=== PATIENT | male | born 1940 | race Caucasian/White ===

== ENCOUNTER 2020-08-17 11:43 | Inpatient (IN) | payer MEDICARE, BC ==
--- NOTE | 2020-08-17 12:25 | RAD ---
RADIOGRAPH CHEST 1 VIEW: DATE: 08/17/2020 HISTORY: 80-year-old male with dyspnea FINDINGS: There are no airspace densities, pulmonary edema, pneumothorax, or cardiomegaly. The lateral costophr enic angles are sharp. IMPRESSION: No acute cardiopulmonary findings.
[2020-08-17 13:04] LABS: #Lymphocytes 0.5 thou/uL (1.20-3.40); #Monocytes 0.4 thou/uL (0.11-0.59); #Neutrophils 4.6 thou/uL (1.40-6.50); %Basophils 0.4 % (0.0-1.0); %Eosinophils 0.4 % (0.0-10.0); %Lymphocytes 8.6 % (21.0-51.0); %Monocytes 7.5 % (0.0-10.0); %Neutrophils 83.1 % (42.0-75.0); Hemoglobin 11.6 g/dL (14.0-18.0); Mean Corpuscular HGB CONC 34.9 g/dL (32.0-36.0); Mean Corpuscular Hemoglobin 40.1 pg (27.0-31.0); RBC Distribution Width 13.6 % (11.5-14.5); Red Blood Cell (RBC) Count 2.89 mill/uL (4.70-6.10); White Blood Cell (WBC) Count 5.6 thou/uL (4.8-10.8)
[2020-08-17 13:08] LABS: ALT (SGPT) 59 U/L (8-55); AST (SGOT) 168 U/L (5-34); Alkaline Phosphatase 164 U/L (40-110); Anion Gap 21 mmol/L (10-20); BUN (Urea Nitrogen) 10 mg/dL (8.4-25.7); Bilirubin, Total 1.6 mg/dL (0.2-1.2); Calc. Creatinine Clearance 0 mL/min (70-130); Calcium 8.3 mg/dL (7.8-10.44); Carbon Dioxide 22 mmol/L (23-31); Chloride 99 mmol/L (98-107); Globulin 4.4 g/dL (2.4-3.5); Glucose 121 mg/dL (83-110); Magnesium 1.6 mg/dL (1.6-2.6); Potassium 3.3 mmol/L (3.5-5.1); Protein, Total 7.4 g/dL (5.8-8.1); Sodium 139 mmol/L (136-145)
[2020-08-17 13:25] LABS: MDiff Complete? YES; Macrocytosis SLIGHT = 6-15 cells (100X) (0-5/hpf); Mean Platelet Volume 6.9 fL (7.4-10.4); Platelet Count 101 thou/uL (130-400); Platelet Morphology Comment Appears Decreased; Polychromasia SLIGHT = 2-3 cells (100X) (0-2/hpf); Target Cells SLIGHT = 2-5 cells (100X) (0-1/hpf)
[2020-08-17 14:34] LABS: Bacteria/HPF None Seen HPF (None Seen); Bilirubin 1+ (Negative); Blood, Urine 2+ (Negative); Clarity Clear (Clear); Glucose, Urine (Dipstick) Normal (Negative); Ketone, Urine 10 mg/dL (Negative); Leukocyte Negative Leu/uL (Negative); Nitrite Negative (Negative); Protein, Urine (Dipstick) 100 mg/dL (Neg-Trace); RBC/HPF Greater than 50 HPF (0-3); Specific Gravity, Urine 1.025 (1.002-1.036); Squamous Epithelial 0-3 HPF (0-3)
[2020-08-17] MEDS ORDERED: Potassium Chloride 20 MEQ TAB ONE (15:08)
[2020-08-17] MEDS ORDERED: Furosemide 40 MG/4 ML VIAL ONE (15:08)
[2020-08-17] MEDS ORDERED: Acetaminophen 325 MG TAB ONE (15:21)
[2020-08-17] MEDS ORDERED: Ondansetron PF 4 MG/2 ML Vial ONE (15:21)
[2020-08-17] MEDS ORDERED: Electrolyte Replacement Protocol 1 EACH FS SCH (16:15)
[2020-08-17] MEDS ORDERED: Potassium Chloride 20 MEQ TAB PO SCH (16:15)
[2020-08-17] MEDS: Acetaminophen 325 MG TAB PO PRN (17:51)
[2020-08-17] MEDS: cefTRIAXone\\ROCEPHIN 1 GM in Sodium Chloride 0.9% 100 ML IVPB SCH (17:52)
[2020-08-17 19:49] LABS: Troponin I 0.031 ng/mL (< 0.028)
[2020-08-17] MEDS: Famotidine 20 MG TAB PO SCH (21:13)
[2020-08-17 22:11] LABS: Troponin I 0.046 ng/mL (< 0.028)
--- NOTE | 2020-08-17 22:43 | HP ---
CHIEF COMPLAINT: Generalized weakness, shortness of breath, lower extremity swelling. HISTORY OF PRESENT ILLNESS: The patient is an 80-year-old male who has a history of colon cancer back in 2012, status post colon resection and chemotherapy, who presents to the hospital with complaints of lower extremity swelling, worsening for the past week. The patient states that he lives alone. He gets a caregiver who comes in 3 to 4 times a week. The patient normally ambulates with a walker, however, for the past week, he has been noticing worsening lower extremity swelling which has not improved. He states that for the past couple of days, he is unable to get up and ambulate with his walker to the point that he has to call his caregiver on a daily basis. He denies any fevers or chills. He does have little bit of a nonproductive cough. Denies any sick contacts. The patient denies any chest tightness. He states that he gets a little short of breath, however, does not ambulate very much at baseline. He normally sleeps in a recliner and has been doing that a lot more than usual. The patient also states that he gets [employer] delivered to him and also his caregiver brings an extra of [employer] D[employer] if he does not like the food at [employer]. The patient states that he has not really seen a primary care doctor and does not have a primary care doctor since his surgery in 2012. He only is treated for glaucoma that he has been using eyedrops. He denies any diarrhea. He states that he takes no medications and had a fall about 2 or 3 weeks ago, but he did not hit his head, he fell on his knees. PAST MEDICAL HISTORY: Per the notes, rectal cancer requiring surgery in the past, hypertension, glaucoma, anemia of chronic disease, seasonal allergies, falls at home, and chronic loose stools. PAST SURGICAL HISTORY: He has a history of rectal cancer surgery, tonsillectomy, bilateral cataract surgery. SOCIAL HISTORY: He lives at home alone with a caregiver who comes in 3 times a week. He is a former smoker, quit 27 years ago. Occasional alcohol use. Denies any drug use. FAMILY HISTORY: He states that they are all diseased. MEDICATIONS: He takes none. REVIEW OF SYSTEMS: All negative except the ones mentioned above in the HPI. PHYSICAL EXAMINATION: VITAL SIGNS: Temperature of 98.9, respiratory rate 18, pulse 105, blood pressure 166/82, oxygen saturation 96% on room air. GENERAL: He is awake, oriented x3. Does not appear in any respiratory distress. CV: Mild sinus tachycardia noted. No arrhythmia noted. No murmurs noted. ABDOMEN: Bowel sounds are present x2. Soft, nontender. No pain upon palpation. EXTREMITIES: He has significant lower extremity pitting edema all the way up to below his knees. SKIN: On his left 2nd toe, which appears significant erythema. Pedal pulses are nonpalpable. NEUROVASCULAR: He is able to move bilateral lower extremities, bilateral upper extremities. No focal deficits noted. HEENT: Pupils are equal and reactive to light. His conjunctivae appear pretty swollen, especially on the left lower lid compared to the right. LABORATORY RESULTS: Sodium of 139, potassium of 3.3, BUN of 10, creatinine of 0.74, glucose of 121. Bilirubin of 1.6, AST of 168, ALT of 59, alkaline phosphatase of 164. His CK is 294. His troponin x1 is negative. Hematology; WBCs of 5.6, hemoglobin of 11.6, hematocrit of 33.3, platelets of 101. His urine has 1+ bilirubin, leukocyte esterase is negative, wbcs of 4 to 6. He did have a BNP, which was mildly elevated, it was 108. Chest x-ray does not show any significant vascular congestion. ASSESSMENT AND PLAN: The patient is an 80-year-old male who presents to the hospital with significant lower extremity pitting edema. 1. Bilateral lower edema, unclear etiology. His BNP is not significantly elevated. The patient was given Lasix in the ER. I will go ahead and get an echocardiogram. We will trend his troponins. I did not see any significant JVD either. The patient clinically actually appears dehydrated. We will continue to monitor. 2. Left great toe erythema, possible cellulitis. The patient does not have a white count, however, he has significant erythema noted on his left 2nd toe. We will start him on some prophylactic ceftriaxone for now, possibly change it to Keflex. 3. Significant deconditioning. The patient will require PT, OT, and possible alf facility. 4. Elevated LFTs. We will get a right upper quadrant ultrasound. 5. Deep venous thrombosis prophylaxis. We will put the patient on subcu Lovenox. 6. We will consult Palliative Care since patient does not have an advance directive and he has a stepson who lives in [facility]. This patient will definitely require placement to a nursing care facility. Job ID: [id number]
[2020-08-18 04:49] LABS: #Lymphocytes 0.7 thou/uL (1.20-3.40); #Monocytes 0.5 thou/uL (0.11-0.59); #Neutrophils 3.5 thou/uL (1.40-6.50); %Basophils 0.8 % (0.0-1.0); %Eosinophils 0.2 % (0.0-10.0); %Lymphocytes 15.6 % (21.0-51.0); %Monocytes 9.8 % (0.0-10.0); %Neutrophils 73.8 % (42.0-75.0); Hemoglobin 9.8 g/dL (14.0-18.0); Mean Corpuscular HGB CONC 33.7 g/dL (32.0-36.0); Mean Corpuscular Hemoglobin 38.3 pg (27.0-31.0); Mean Platelet Volume 7.4 fL (7.4-10.4); Platelet Count 81 thou/uL (130-400); RBC Distribution Width 13.8 % (11.5-14.5); Red Blood Cell (RBC) Count 2.56 mill/uL (4.70-6.10); White Blood Cell (WBC) Count 4.8 thou/uL (4.8-10.8)
[2020-08-18 04:58] LABS: SARS-CoV-2 PCR by NAA Not Detected (NotDetected)
[2020-08-18 05:05] LABS: Anion Gap 14 mmol/L (10-20); BUN (Urea Nitrogen) 14 mg/dL (8.4-25.7); Calc. Creatinine Clearance 77 mL/min (70-130); Carbon Dioxide 30 mmol/L (23-31); Chloride 98 mmol/L (98-107); Glucose 105 mg/dL (83-110); Potassium 4.1 mmol/L (3.5-5.1); Sodium 138 mmol/L (136-145)
[2020-08-18] MEDS ORDERED: Magnesium 2 GM/50 ML 2 GM in Premix Bag 1 BAG IVPB SCH (06:30)
--- NOTE | 2020-08-18 07:53 | ULT ---
Right upper quadrant ultrasound: 08/18/2020 COMPARISON: None HISTORY: Elevated liver function tests TECHNIQUE: Multiplanar grayscale sonographic imaging of the right upper quadrant provided. FINDINGS: The pancreas is partially obscured by bowel gas. Visualized pancreas unremarkable. The hepa tic parenchyma is heterogeneous and echogenic, limiting assessment for focal liver lesion and biliary dilatation. The common bile duct measures 6 mm, upper limits of normal. The gallbladder wall appears thickened and hypoechoic in the region of the fundus. However, this coul d represent the gallbladder wall blending with focal fatty sparing of the hepatic parenchyma. The gallbladder appears otherwise unremarkable, with no discrete stones or sludge. The fretted instrument maker hand report s a negative Del Cid's sign. The right kidney measures 9.7 cm in craniocaudal dimension. There is a probable cyst emanating from t he lower pole of the right kidney measuring 1.5 cm. IMPRESSION: Findings suggesting hepatic steatosis. No evidence for cholelithiasis or cholecystitis. P alejandra see above discussion.
[2020-08-18] MEDS: Cyanocobalamin (Vitamin B-12) 1,000 MCG TAB PO SCH (08:53)
[2020-08-18] MEDS: Folic Acid 1 MG TAB PO SCH (08:53)
[2020-08-18] MEDS: Famotidine 20 MG TAB PO SCH ×2 (08:53→21:13)
[2020-08-18] MEDS: Enoxaparin Sodium 40 MG/0.4 ML SYRINGE SC SCH (08:55)
[2020-08-18] MEDS: Acetaminophen 325 MG TAB PO PRN (08:56)
[2020-08-18] MEDS ORDERED: Furosemide 40 MG/4 ML VIAL SLOW IVP SCH ×2 (09:00→10:00)
[2020-08-18] MEDS ORDERED: Ondansetron PF 4 MG/2 ML Vial IVP PRN (09:46)
[2020-08-18] MEDS ORDERED: Gabapentin 300 MG CAP PO SCH ×2 (13:37→14:15)
--- NOTE | 2020-08-18 14:22 | RAD ---
LEFT ANKLE 3 VIEWS: HISTORY: Ankle pain. COMPARISON: None. FINDINGS: There is extensive soft tissue swelling around the ankle. Mild to moderate vascular calcifications. No acute displaced fracture or malalignment. There are degenerative changes on the medial ankle mortise. Mild demineralization of the mid foot. IMPRESSION: 1. Extensive soft tissue swelling around the ankle. This can be seen with venous insufficiency, juvenal lulitis, or lymphedema. 2. Moderate to advised medial ankle mortise degeneration. 3. Likely osteochondral defect posteromedial talar dome. POS: OFF
--- NOTE | 2020-08-18 15:50 | PDOC.HOSPP ---
- Subjective Encounter Date: 08/18/20 Encounter Time: 10:45 Subjective: pt up in bed no complains - Objective Vital Signs & Weight: Vital Signs (12 hours) Temp Pulse Pulse Resp BP BP Pulse Ox 08/18/20 11:00 98.7 F 81 15 131/68 100 08/18/20 10:30 92 130/86 08/18/20 08:40 98.4 F 87 16 123/67 95 08/18/20 03:50 98.7 F 98 16 119/75 96 Weight Admit Weight 167 lb 9.6 oz Weight 167 lb 9.6 oz I&O: 08/17/20 08/18/20 08/19/20 06:59 06:59 06:59 Intake Total 470 Balance 470 Result Diagrams: 08/20/20 04:15 08/20/20 03:30 Hospitalist ROS - Review of Systems Respiratory: denies: cough, dry, shortness of breath, hemoptysis, SOB with excertion, pleuritic pain, sputum, wheezing, other Cardiovascular: denies: chest pain, palpitations, orthopnea, paroxysmal noc. dyspnea, edema, light headedness, other Gastrointestinal: denies: nausea, vomiting, abdominal pain, diarrhea, constipation, melena, hematochezia, other - Medication Medications: Active Medications Generic Name Dose Route Start Last Admin Trade Name Freq PRN Reason Stop Dose Admin Acetaminophen 650 mg 08/17/20 15:26 08/18/20 08:56 Acetaminophen 325 Mg Tab PO 650 mg Q8H PRN Administration Headache/Fever/Mild Pain (1-3) Cyanocobalamin 1,000 mcg 08/18/20 09:00 08/18/20 08:53 Cyanocobalamin (Vitamin B-12) 1,000 Mcg Tab PO 1,000 mcg DAILY JEANETTE Administration Enoxaparin Sodium 40 mg 08/18/20 09:00 08/18/20 08:55 Enoxaparin Sodium 40 Mg/0.4 Ml Syringe SC Not Given 0900 JEANETTE Famotidine 20 mg 08/17/20 21:00 08/18/20 08:53 Famotidine 20 Mg Tab PO 20 mg BID JEANETTE Administration Folic Acid 1 mg 08/18/20 09:00 08/18/20 08:53 Folic Acid 1 Mg Tab PO 1 mg DAILY JEANETTE Administration Gabapentin 300 mg 08/18/20 14:15 08/18/20 15:27 Gabapentin 300 Mg Cap PO 08/18/20 16:00 300 mg NOW JEANETTE Administration Ceftriaxone Sodium 1 gm/ 100 mls @ 200 mls/hr 08/17/20 17:00 08/17/20 17:52 Sodium Chloride IVPB 100 mls Q24HR JEANETTE Administration Ondansetron HCl 4 mg 08/18/20 09:46 08/18/20 11:03 Ondansetron Pf 4 Mg/2 Ml Vial IVP 4 mg Q6H PRN Administration Nausea/Vomiting Sodium Chloride 10 ml 08/18/20 09:00 08/18/20 08:56 Flush - Normal Saline 10 Ml Syringe IVF 10 ml Q12HR JEANETTE Administration Hospitalist Exam Vitals: Vital Signs (12 hours) Temp Pulse Pulse Resp BP BP Pulse Ox 08/18/20 11:00 98.7 F 81 15 131/68 100 08/18/20 10:30 92 130/86 08/18/20 08:40 98.4 F 87 16 123/67 95 08/18/20 03:50 98.7 F 98 16 119/75 96 Weight Admit Weight 167 lb 9.6 oz Weight 167 lb 9.6 oz Neck: supple Heart: no murmur, no gallops Respiratory: no wheezes, no rales, no ronchi Gastrointestinal: soft, non-tender, non-distended, normal bowel sounds Extremities: 2+ LE edema Hosp A/P (1) Gout Code(s): M10.9 - GOUT, UNSPECIFIED Status: Acute (2) Alcohol abuse Code(s): F10.10 - ALCOHOL ABUSE, UNCOMPLICATED Status: Acute (3) Abnormal LFTs Code(s): R79.89 - OTHER SPECIFIED ABNORMAL FINDINGS OF BLOOD CHEMISTRY Status: Acute (4) Physical deconditioning Code(s): R53.81 - OTHER MALAISE Status: Acute - Plan will get left ankle xray. will check Uric acid. PT to evaluate pt. will see if we can send him to rehab. echo done pending.
[2020-08-18] MEDS: cefTRIAXone\\ROCEPHIN 1 GM in Sodium Chloride 0.9% 100 ML IVPB SCH (17:12)
[2020-08-18] MEDS ORDERED: FLU VACC QS2020-21(65YR UP)/PF 240 MCG/0.7 ML SYRINGE IM ONE (18:15)
[2020-08-18] MEDS: Gabapentin 300 MG CAP PO SCH (21:12)
[2020-08-19] MEDS ORDERED: Ketorolac Tromethamine 30 MG/ML VIAL IVP SCH (07:45)
[2020-08-19] MEDS: Gabapentin 300 MG CAP PO SCH ×2 (07:52→21:48)
[2020-08-19] MEDS: Famotidine 20 MG TAB PO SCH ×2 (07:52→21:47)
[2020-08-19] MEDS: Cyanocobalamin (Vitamin B-12) 1,000 MCG TAB PO SCH (07:52)
[2020-08-19] MEDS: Folic Acid 1 MG TAB PO SCH (07:52)
[2020-08-19] MEDS: Enoxaparin Sodium 40 MG/0.4 ML SYRINGE SC SCH (07:53)
[2020-08-19] MEDS ORDERED: Colchicine 0.6 MG TAB PO SCH (09:15)
[2020-08-19 09:31] LABS: #Eosinphils 0.1 thou/uL (0.0-0.7); #Lymphocytes 0.7 thou/uL (1.20-3.40); #Monocytes 0.4 thou/uL (0.11-0.59); #Neutrophils 2.5 thou/uL (1.40-6.50); %Basophils 0.1 % (0.0-1.0); %Eosinophils 2.4 % (0.0-10.0); %Lymphocytes 18.5 % (21.0-51.0); %Monocytes 9.6 % (0.0-10.0); %Neutrophils 69.3 % (42.0-75.0); Hemoglobin 10.3 g/dL (14.0-18.0); Mean Corpuscular HGB CONC 33.5 g/dL (32.0-36.0); Mean Corpuscular Hemoglobin 38.4 pg (27.0-31.0); Mean Platelet Volume 7.6 fL (7.4-10.4); Platelet Count 83 thou/uL (130-400); RBC Distribution Width 13.6 % (11.5-14.5); Red Blood Cell (RBC) Count 2.67 mill/uL (4.70-6.10); White Blood Cell (WBC) Count 3.6 thou/uL (4.8-10.8)
[2020-08-19 10:10] LABS: MDiff Complete? YES; Macrocytosis MODERATE=16-30 cells (100X) (0-5/hpf); Platelet Morphology Comment Appears Decreased; Polychromasia SLIGHT = 2-3 cells (100X) (0-2/hpf)
[2020-08-19] MEDS ORDERED: Iopamidol 370 76% 100 ML VIAL ONE (12:10)
--- NOTE | 2020-08-19 14:47 | CT ---
CT ANGIO OF CHEST PERFORMED WITH INTRAVENOUS CONTRAST ENHANCEMENT WITH 3D RECONSTRUCTIONS: HISTORY: Tachycardia and hypoxia. COVID positive. There is some parenchymal scarring present in the lower lobes and right upper lobe. There are no mike und-glass infiltrative lung changes seen. No pleural effusions. Thoracic aorta is normal in caliber. There is good pulmonary artery opacification obtained and there is no CT evidence for pulmonary embolus. Coronary calcification is noted. Visualized liver parenchyma shows a suggestion of fatty change. The adrenal glands appear mildly hyp erplastic, particularly on the left. The contour of the liver is slightly nodular which could indica te some cirrhotic change. IMPRESSION: 1. Chronic-appearing lung change. No evidence of any ground-glass infiltrates. 2. No CT evidence for pulmonary embolus. POS: KARIS
--- NOTE | 2020-08-19 16:24 | PQF ---
CLINICAL DOCUMENTATION CLARIFICATION FORM: Dear Dr. Octavio Riley Date: 08/19/2020 1600, 08/20/2020 0930 Please exercise your independent, professional judgment in responding to the clarification form. Clinical indicators are provided on the bottom of this form for your review. Please check appropriate box(es): CONGESTIVE HEART FAILURE: A. ACUITY [ ] Acute [ x ] Acute on Chronic [ ] Chronic B. TYPE: [ ] Systolic / HFrEF [ x ] Diastolic / HFpEF [ ] Combined Systolic / Diastolic [ ] Other diagnosis [ ] Unable to determine In addition, please specify: Present on Admission (POA): [x ] Yes [ ] No [ ] Unable to determine For continuity of documentation, please document condition throughout progress notes and discharge summary. Thank You. To be completed by CDI/Coding staff for physician review: CLINICAL INDICATORS - SIGNS / SYMPTOMS / LABS / RESULTS AND LOCATION IN EMR 08/17 BNP 108.6 Presents to ED with BLE swelling, cardiovascular assessment findings include heart rate tachycardic. Feels slightly short of breath ( ED report) 08/17 Bilateral lower edema, unclear etiology ( H&P/Osvaldo) 08/17 ECHO : EF is visually estimated at 55-60%, suggestive of diastolic dysfunction (08/18) RISKS FACTORS / RESULTS AND LOCATION IN EMR Advanced age (80), hx HTN TREATMENTS / RESULTS AND LOCATION IN EMR Lasix IV (08/17) Continuous telemetry monitoring ( 08/17 - present) Thank you! CDS Signature: Fiorella Cuevas RN Phone #: [phone] Date: 08/19/2020 This is a permanent part of the Medical Record [facility]
[2020-08-19] MEDS: cefTRIAXone\\ROCEPHIN 1 GM in Sodium Chloride 0.9% 100 ML IVPB SCH (16:53)
--- NOTE | 2020-08-19 17:56 | PDOC.HOSPP ---
- Subjective Encounter Date: 08/19/20 Encounter Time: 10:30 Subjective: pt up in bed states that he feels much better - Objective Vital Signs & Weight: Vital Signs (12 hours) Temp Pulse Pulse Pulse Resp BP BP 08/19/20 16:00 98.5 F 93 20 08/19/20 11:00 98.4 F 83 18 08/19/20 09:50 95 109 H 154/93 H 139/88 08/19/20 07:45 98.9 F 83 15 BP Pulse Ox 08/19/20 16:00 102/61 94 L 08/19/20 11:00 144/79 H 95 08/19/20 09:50 08/19/20 07:45 149/83 H 97 Weight Admit Weight 167 lb 9.6 oz Weight 165 lb 3.2 oz I&O: 08/18/20 08/19/20 08/20/20 06:59 06:59 06:59 Intake Total 470 1790 1320 Balance 470 1790 1320 Result Diagrams: 08/19/20 08:35 08/18/20 04:17 Hospitalist ROS - Review of Systems Cardiovascular: denies: chest pain, palpitations, orthopnea, paroxysmal noc. dyspnea, edema, light headedness, other Gastrointestinal: denies: nausea, vomiting, abdominal pain, diarrhea, constipation, melena, hematochezia, other Genitourinary: denies: dysuria, frequency, incontinence, hematuria, retention, other - Medication Medications: Active Medications Generic Name Dose Route Start Last Admin Trade Name Freq PRN Reason Stop Dose Admin Acetaminophen 650 mg 08/17/20 15:26 08/18/20 08:56 Acetaminophen 325 Mg Tab PO 650 mg Q8H PRN Administration Headache/Fever/Mild Pain (1-3) Cyanocobalamin 1,000 mcg 08/18/20 09:00 08/19/20 07:52 Cyanocobalamin (Vitamin B-12) 1,000 Mcg Tab PO 1,000 mcg DAILY JEANETTE Administration Enoxaparin Sodium 40 mg 08/18/20 09:00 08/19/20 07:53 Enoxaparin Sodium 40 Mg/0.4 Ml Syringe SC Not Given 0900 JEANETTE Famotidine 20 mg 08/17/20 21:00 08/19/20 07:52 Famotidine 20 Mg Tab PO 20 mg BID JEANETTE Administration Folic Acid 1 mg 08/18/20 09:00 08/19/20 07:52 Folic Acid 1 Mg Tab PO 1 mg DAILY JEANETTE Administration Gabapentin 300 mg 08/18/20 21:00 08/19/20 07:52 Gabapentin 300 Mg Cap PO 300 mg BID JEANETTE Administration Ceftriaxone Sodium 1 gm/ 100 mls @ 200 mls/hr 08/17/20 17:00 08/19/20 16:53 Sodium Chloride IVPB 100 mls Q24HR JEANETTE Administration Ondansetron HCl 4 mg 08/18/20 09:46 08/18/20 11:03 Ondansetron Pf 4 Mg/2 Ml Vial IVP 4 mg Q6H PRN Administration Nausea/Vomiting Sodium Chloride 10 ml 08/18/20 09:00 08/19/20 07:53 Flush - Normal Saline 10 Ml Syringe IVF 10 ml Q12HR JEANETTE Administration Hospitalist Exam Vitals: Vital Signs (12 hours) Temp Pulse Pulse Pulse Resp BP BP 08/19/20 16:00 98.5 F 93 20 08/19/20 11:00 98.4 F 83 18 08/19/20 09:50 95 109 H 154/93 H 139/88 08/19/20 07:45 98.9 F 83 15 BP Pulse Ox 08/19/20 16:00 102/61 94 L 08/19/20 11:00 144/79 H 95 08/19/20 09:50 08/19/20 07:45 149/83 H 97 Weight Admit Weight 167 lb 9.6 oz Weight 165 lb 3.2 oz Neck: supple Heart: no murmur Respiratory: no wheezes, no rales Gastrointestinal: soft, non-tender, non-distended, normal bowel sounds Extremities: 1+ LE edema Extremities - other findings: mild erythema to left second toe Hosp A/P (1) Gout Code(s): M10.9 - GOUT, UNSPECIFIED Status: Acute (2) Alcohol abuse Code(s): F10.10 - ALCOHOL ABUSE, UNCOMPLICATED Status: Acute (3) Abnormal LFTs Code(s): R79.89 - OTHER SPECIFIED ABNORMAL FINDINGS OF BLOOD CHEMISTRY Status: Acute (4) Physical deconditioning Code(s): R53.81 - OTHER MALAISE Status: Acute (5) Cellulitis Code(s): L03.90 - CELLULITIS, UNSPECIFIED Status: Acute Plan: left second toe - Plan will get left ankle xray. will check Uric acid. PT to evaluate pt. will see if we can send him to rehab. echo done pending. 08/19 will continue abx for now. echo indicates ef of 55-60% pt's uric acid is high will start pt on colchicine. will also give toradol to see if this helps. pt is tachycardiac on ambulation could be due to his sedentary lifestyle. will get CTA.
[2020-08-19] MEDS: Metoprolol Tartrate 25 MG TAB PO SCH (21:47)
[2020-08-19] MEDS: Ketorolac Tromethamine 30 MG/ML VIAL IVP SCH (21:49)
[2020-08-20 07:23] LABS: Anion Gap 13 mmol/L (10-20); BUN (Urea Nitrogen) 17 mg/dL (8.4-25.7); Calc. Creatinine Clearance 75 mL/min (70-130); Carbon Dioxide 29 mmol/L (23-31); Chloride 96 mmol/L (98-107); Glucose 109 mg/dL (83-110); Potassium 3.5 mmol/L (3.5-5.1); Sodium 134 mmol/L (136-145)
[2020-08-20 07:51] LABS: #Eosinphils 0.1 thou/uL (0.0-0.7); #Lymphocytes 0.8 thou/uL (1.20-3.40); #Monocytes 0.5 thou/uL (0.11-0.59); #Neutrophils 2.6 thou/uL (1.40-6.50); %Basophils 0.3 % (0.0-1.0); %Eosinophils 3.1 % (0.0-10.0); %Lymphocytes 19.5 % (21.0-51.0); %Monocytes 11.5 % (0.0-10.0); %Neutrophils 65.6 % (42.0-75.0); Hemoglobin 9.8 g/dL (14.0-18.0); Mean Corpuscular HGB CONC 33.6 g/dL (32.0-36.0); Mean Corpuscular Hemoglobin 38.3 pg (27.0-31.0); Mean Platelet Volume 8.2 fL (7.4-10.4); Platelet Count 79 thou/uL (130-400); RBC Distribution Width 13.7 % (11.5-14.5); Red Blood Cell (RBC) Count 2.57 mill/uL (4.70-6.10)
[2020-08-20] MEDS: Metoprolol Tartrate 25 MG TAB PO SCH ×2 (08:34→20:46)
[2020-08-20] MEDS: Thiamine 100 MG TAB PO SCH (08:34)
[2020-08-20] MEDS: Famotidine 20 MG TAB PO SCH ×2 (08:34→20:47)
[2020-08-20] MEDS: Folic Acid 1 MG TAB PO SCH (08:34)
[2020-08-20] MEDS: Ketorolac Tromethamine 30 MG/ML VIAL IVP SCH (08:36)
[2020-08-20] MEDS: Gabapentin 300 MG CAP PO SCH ×2 (08:36→20:47)
[2020-08-20] MEDS: Cyanocobalamin (Vitamin B-12) 1,000 MCG TAB PO SCH (08:37)
[2020-08-20] MEDS: Enoxaparin Sodium 40 MG/0.4 ML SYRINGE SC SCH (08:39)
[2020-08-20] MEDS: Colchicine 0.6 MG TAB PO SCH (09:41)
[2020-08-20] MEDS ORDERED: Pantoprazole 40 MG VIAL IVP SCH (10:15)
[2020-08-20] MEDS ORDERED: Dorzolamide HCl 2% Ophth Soln 10 ml Bottle EA EYE SCH (10:45)
[2020-08-20] MEDS ORDERED: Timolol 0.5% Ophth Soln 5 ml Bottle EA EYE SCH (10:45)
[2020-08-20] MEDS: Cephalexin 250 MG CAP PO SCH ×3 (11:37→22:54)
[2020-08-20 13:39] VITALS: BMI 25.9
--- NOTE | 2020-08-20 13:42 | PDOC.HOSPP ---
- Subjective Encounter Date: 08/20/20 Encounter Time: 10:30 Subjective: Patient up in bed states he feels much better. - Objective Vital Signs & Weight: Vital Signs (12 hours) Temp Pulse Resp BP Pulse Ox 08/20/20 11:58 97.9 F 90 20 99/63 93 L 08/20/20 07:46 97.8 F 92 18 143/70 H 95 08/20/20 04:47 98.7 F 78 19 125/66 97 Weight Admit Weight 167 lb 9.6 oz Weight 165 lb 3.2 oz I&O: 08/19/20 08/20/20 08/21/20 06:59 06:59 06:59 Intake Total 1790 1870 Output Total 350 Balance 1790 1520 Result Diagrams: 08/20/20 04:15 08/20/20 03:30 Hospitalist ROS - Review of Systems Respiratory: denies: cough, dry, shortness of breath, hemoptysis, SOB with excertion, pleuritic pain, sputum, wheezing, other Cardiovascular: denies: chest pain, palpitations, orthopnea, paroxysmal noc. dyspnea, edema, light headedness, other Gastrointestinal: denies: nausea, vomiting, abdominal pain, diarrhea, constipation, melena, hematochezia, other Genitourinary: denies: dysuria, frequency, incontinence, hematuria, retention, other - Medication Medications: Active Medications Generic Name Dose Route Start Last Admin Trade Name Freq PRN Reason Stop Dose Admin Acetaminophen 650 mg 08/17/20 15:26 08/18/20 08:56 Acetaminophen 325 Mg Tab PO 650 mg Q8H PRN Administration Headache/Fever/Mild Pain (1-3) Cephalexin 250 mg 08/20/20 12:00 08/20/20 11:37 Cephalexin 250 Mg Cap PO 250 mg Q6HR JEANETTE Administration Colchicine 0.6 mg 08/20/20 09:00 08/20/20 09:41 Colchicine 0.6 Mg Tab PO 0.6 mg DAILY JEANETTE Administration Cyanocobalamin 1,000 mcg 08/18/20 09:00 08/20/20 08:37 Cyanocobalamin (Vitamin B-12) 1,000 Mcg Tab PO 1,000 mcg DAILY JEANETTE Administration Enoxaparin Sodium 40 mg 08/18/20 09:00 08/20/20 08:39 Enoxaparin Sodium 40 Mg/0.4 Ml Syringe SC Not Given 0900 [facility] Famotidine 20 mg 08/17/20 21:00 08/20/20 08:34 Famotidine 20 Mg Tab PO 20 mg BID JEANETTE Administration Folic Acid 1 mg 08/18/20 09:00 08/20/20 08:34 Folic Acid 1 Mg Tab PO 1 mg DAILY JEANETTE Administration Gabapentin 300 mg 08/18/20 21:00 08/20/20 08:36 Gabapentin 300 Mg Cap PO 300 mg BID JEANETTE Administration Metoprolol Tartrate 12.5 mg 08/19/20 21:00 08/20/20 08:34 Metoprolol Tartrate 25 Mg Tab PO 12.5 mg BID JEANETTE Administration Ondansetron HCl 4 mg 08/18/20 09:46 08/18/20 11:03 Ondansetron Pf 4 Mg/2 Ml Vial IVP 4 mg Q6H PRN Administration Nausea/Vomiting Sodium Chloride 10 ml 08/18/20 09:00 08/20/20 08:41 Flush - Normal Saline 10 Ml Syringe IVF 10 ml Q12HR JEANETTE Administration Thiamine HCl 100 mg 08/20/20 09:00 08/20/20 08:34 Thiamine 100 Mg Tab PO 100 mg DAILY JEANETTE Administration Hospitalist Exam Vitals: Vital Signs (12 hours) Temp Pulse Resp BP Pulse Ox 08/20/20 11:58 97.9 F 90 20 99/63 93 L 08/20/20 07:46 97.8 F 92 18 143/70 H 95 08/20/20 04:47 98.7 F 78 19 125/66 97 Weight Admit Weight 167 lb 9.6 oz Weight 165 lb 3.2 oz Neck: supple Heart: RRR, no murmur, no gallops Respiratory: no wheezes, no rales Gastrointestinal: soft, non-tender, normal bowel sounds Hosp A/P (1) Gout Code(s): M10.9 - GOUT, UNSPECIFIED Status: Acute (2) Alcohol abuse Code(s): F10.10 - ALCOHOL ABUSE, UNCOMPLICATED Status: Acute (3) Abnormal LFTs Code(s): R79.89 - OTHER SPECIFIED ABNORMAL FINDINGS OF BLOOD CHEMISTRY Status: Acute (4) Physical deconditioning Code(s): R53.81 - OTHER MALAISE Status: Acute (5) Cellulitis Code(s): L03.90 - CELLULITIS, UNSPECIFIED Status: Acute - Plan will get left ankle xray. will check Uric acid. PT to evaluate pt. will see if we can send him to rehab. echo done pending. 08/19 will continue abx for now. echo indicates ef of 55-60% pt's uric acid is high will start pt on colchicine. will also give toradol to see if this helps. pt is tachycardiac on ambulation could be due to his sedentary lifestyle. will get CTA. 08/20 we will change IV antibiotics to oral. Patient's left foot swelling has improved. We will continue colchicine for now. Patient's fecal occult was positive. He has not seen a primary care doctor since 2012. Given his history of cancer will go ahead and get GI to see him. Patient is very noncompliant does not follow-up.
[2020-08-20] MEDS: Brimonidine Tartrate 0.2% Ophth Soln 5 ml Bottle EA EYE SCH ×2 (16:02→20:43)
[2020-08-20] MEDS: Timolol 0.5% Ophth Soln 5 ml Bottle EA EYE SCH (20:43)
[2020-08-20] MEDS: Pantoprazole 40 MG VIAL IVP SCH (20:46)
[2020-08-20] MEDS: Dorzolamide HCl 2% Ophth Soln 10 ml Bottle EA EYE SCH (20:46)
[2020-08-20] MEDS ORDERED: Latanoprost 0.005% Ophth Soln 2.5 ml Bottle EA EYE SCH (21:00)
--- NOTE | 2020-08-21 00:32 | CON ---
DATE OF CONSULTATION: 08/20/2020 REASON: Heme-positive stool. HISTORY OF PRESENT ILLNESS: Mr. Bowling is an 80-year-old man who was admitted 4 days ago with leg swelling. He has gout and also cellulitis involving the toes and is currently on colchicine and antibiotics. Overall, he has been feeling much better since admission. During the course of evaluation, he was noted to have elevation of liver enzymes with AST greater than ALT. Given his history of alcohol consumption, his pattern of liver elevation is very consistent with alcoholic hepatitis. He has been drinking much more since he lost his this past November. His like is [employer] whiskey, but does not elaborate on the exact amount. He also was noted to have heme-positive stool. There is no overt bleeding such as melena, hematochezia, or rectal bleeding. He was diagnosed with rectal cancer on colonoscopy in 2013 along with other polyps removed. At that time, he underwent a diverting ileostomy with a low anterior resection followed by radiation chemotherapy. The ileostomy was subsequently reversed. He reports having fairly regular bowel function since then. PAST MEDICAL HISTORY: 1. Rectal cancer in 2013, treated with low anterior resection followed by chemoradiation with diverting ileostomy that was later taken down. 2. Hypertension. 3. Anemia from chronic disease and alcohol with microcytosis. 4. Frequent loose stools. 5. Cataract surgery. ALLERGIES: NONE. MEDICATIONS AT HOME: Include eye drops. SOCIAL HISTORY: The patient is recently and lives at home by himself. He has Meals on Wheels. He is a former smoker. He consumes a large amount of [employer] whiskey, exact amount is not known. REVIEW OF SYSTEMS: 10-point review of systems did not show any other reported symptoms. PHYSICAL EXAMINATION: VITAL SIGNS: Temperature is 98, blood pressure 118/60, pulse of 68. GENERAL: He is alert without distress. HEENT: Shows anicteric sclerae. Oropharynx is clear. CV: Shows normal S1, S2. Regular rate and rhythm. CHEST: Shows breath sounds. ABDOMEN: Mildly protuberant but soft and nontender. He has active bowel sounds. EXTREMITIES: Does show edema and erythema in lower extremity with dressing. LABORATORY DATA: WBC 4.0, hemoglobin 9.8, MCV of 114, and platelet count of 79. His bilirubin is 1.6, AST of 168, ALT of 59, and alkaline phosphatase of 164. Stool Hemoccult positive. ASSESSMENT: 1. Microcytic anemia, likely from chronic disease and alcohol consumption. 2. Alcoholic hepatitis with AST elevation greater than ALT. No stigmata of liver cirrhosis, although he does have some mild thrombocytopenia, which could also be from alcoholic myelosuppression. 3. History of rectal cancer in 2013 and history of multiple colon polyps. The patient currently has heme-positive stool, but without any overt bleeding. RECOMMENDATION: Colonoscopy is recommended and discussed with Mr. Bowling. He does not want to proceed with a colonoscopy despite his prior history of polyps and rectal cancer and current finding of heme-positive stool. He just wants to go to rehab and will think about this issue at a later date. The more I discussed with him about the indication, the more irritated he gets. Please recall GI Service if he changes his mind about proceeding with colonoscopy. Job ID: [id number]
[2020-08-21] MEDS: Cephalexin 250 MG CAP PO SCH ×2 (05:12→11:23)
[2020-08-21] MEDS: Brimonidine Tartrate 0.2% Ophth Soln 5 ml Bottle EA EYE SCH ×2 (08:30→14:06)
[2020-08-21] MEDS: Timolol 0.5% Ophth Soln 5 ml Bottle EA EYE SCH (08:30)
[2020-08-21] MEDS: Dorzolamide HCl 2% Ophth Soln 10 ml Bottle EA EYE SCH (08:30)
[2020-08-21] MEDS: Folic Acid 1 MG TAB PO SCH (08:33)
[2020-08-21] MEDS: Famotidine 20 MG TAB PO SCH (08:33)
[2020-08-21] MEDS: Pantoprazole 40 MG VIAL IVP SCH (08:33)
[2020-08-21] MEDS: Cyanocobalamin (Vitamin B-12) 1,000 MCG TAB PO SCH (08:34)
[2020-08-21] MEDS: Colchicine 0.6 MG TAB PO SCH (08:34)
[2020-08-21] MEDS: Metoprolol Tartrate 25 MG TAB PO SCH (08:34)
[2020-08-21] MEDS: Thiamine 100 MG TAB PO SCH (08:34)
[2020-08-21] MEDS: Gabapentin 300 MG CAP PO SCH (08:35)
[2020-08-21] MEDS: Enoxaparin Sodium 40 MG/0.4 ML SYRINGE SC SCH (08:44)
--- NOTE | 2020-08-21 13:09 | PDOC.DS.DS ---
Provider Date of Admission: 08/17/20 16:13 Date of Discharge: 08/21/20 Admitting Provider: Brianna Robertson MD Primary Care Physician: NO PCP PROVIDER Course Hospital Course: Patient is a 80-year-old man who lives alone has a history of colon cancer status post radiation and chemotherapy in 2012 who presents to the hospital gene ralized weakness and lower extremity swelling. Patient had a echocardiogram which indicated an EF of 55 to 60% some diastolic dysfunction was noted. He was given a few doses of Lasix which improved his lower extremity swelling. His left ankle appeared more swollen than the right. X-rays indicated some edema at this time uric acid was checked which was elevated. Patient was put on colchicine and Toradol. This helped the patient's mobility significantly. Toradol was discontinued after few doses. Patient was noted to be anemic given his history of cancer and no follow-up with his primary stool for occult blood was checked which was positive. GI was consulted however patient refused to have a colonoscopy and further testing. Patient at this time due to severe deconditioning was sent to rehab. He had elevated LFTs abdominal ultrasound was done which indicated hepatic steatosis. Patient has a history of drinking he continues to drink. He was noted to have tachycardia CTA done which indicated no evidence of groundglass infiltrates chronically appearing lung no PE. At this time patient was put on a low-dose beta-sayra. Resuscitation Status: 08/17/20 15:26 Resuscitation Status Routine Resuscitation Status: FULL: Full Resuscitation Lab Results: 08/20/20 04:15 08/20/20 03:30 Abnormal Lab Results - Last 48 hrs 08/20/20 03:30: Sodium 134 L, Chloride 96 L 08/20/20 04:15: WBC 4.0 L, RBC 2.57 L, Hgb 9.8 L, Hct 29.3 L, MCV 114.0 H, MCH 38.3 H, Plt Count 79 L, Lymphocytes % 19.5 L, Monocytes % 11.5 H, Lymphocytes # 0.8 L Microbiology - Entire Visit 08/19/20 23:16 Stool - Loose Stool Occult Blood (VERNELL) - Final Vitals: Vital Signs (12 hours) Temp Pulse Resp BP Pulse Ox 08/21/20 11:25 98.0 F 91 18 125/71 93 L 08/21/20 08:30 72 08/21/20 07:31 98.0 F 72 16 129/73 95 08/21/20 04:50 98.3 F 79 20 134/75 93 L Weight Admit Weight 167 lb 9.6 oz Weight 165 lb 12.8 oz Physical Exam: The patient was seen and examined on the day of discharge. Problem (1) Gout Code(s): M10.9 - GOUT, UNSPECIFIED Status: Acute (2) Alcohol abuse Code(s): F10.10 - ALCOHOL ABUSE, UNCOMPLICATED Status: Acute (3) Abnormal LFTs Code(s): R79.89 - OTHER SPECIFIED ABNORMAL FINDINGS OF BLOOD CHEMISTRY Status: Acute (4) Physical deconditioning Code(s): R53.81 - OTHER MALAISE Status: Acute (5) Acute diastolic heart failure Code(s): I50.31 - ACUTE DIASTOLIC (CONGESTIVE) HEART FAILURE Status: Acute Plan Home Medications: Medication Instructions Recorded Confirmed Type Dorzolamide HCl/Pf [Dorzolamide 2% 10 ml OP BID 08/19/20 08/19/20 History Eye Drop] Latanoprost [Latanoprost 0.05% 1 drop EA EYE HS 08/19/20 08/19/20 History Ophth] Timolol [Betimol 0.5% Ophth 1 drop EA EYE BID 08/19/20 08/19/20 History Solution] Brimonidine Tartrate [Alphagan 1 drop EA EYE TID 08/20/20 08/20/20 History 0.2% Ophth Soln] Cephalexin [Keflex] 250 mg PO Q6HR #12 cap 08/21/20 Rx Colchicine 0.6 mg PO DAILY tab 08/21/20 Rx Folic Acid [Folvite] 1 mg PO DAILY tab 08/21/20 Rx Gabapentin [Neurontin] 300 mg PO BID cap 08/21/20 Rx Metoprolol Tartrate [Lopressor] 12.5 mg PO BID tab 08/21/20 Rx Thiamine 100 mg PO DAILY tab 08/21/20 Rx Allergies: No Known Allergies Allergy (Verified 02/05/14 12:30) Activity:: Activity as Tolerated Nourishment:: Heart Healthy Diet Therapies:: Physical Therapy Referrals: [facility] [Other] (PATIENT TO TRANSFER TO [facility] TODAY. ) Cinthya Reyna MD [Active] - PROVIDER,NO PCP [Primary Care Provider] - Disposition: HOME Quality CORE MEASURES:: N/A
[2020-08-21 15:29] VITALS: BP 98/57; TEMP 97.9
--- NOTE | 2020-08-23 21:43 | EKG ---
Test Reason : FEET SWELLING Blood Pressure : / mmHG Vent. Rate : 107 BPM Atrial Rate : 107 BPM P-R Int : 160 ms QRS Dur : 086 ms QT Int : 334 ms P-R-T Axes : 000 222 061 degrees QTc Int : 445 ms Sinus tachycardia Right superior axis deviation Nonspecific ST and T wave abnormality Abnormal ECG Confirmed by JAY JARVIS DO ([id number]), department editor NIK NORTON ([id number]) on 08/23/2020 9:43:07 PM Referred By: Confirmed By:JAY JARVIS DO
== END 2020-08-21 16:15 | DRG 602 ==
LOC: ERS 11:43 → 2NO 16:13
PROVIDERS: ADMIT Internal Medicine; ATTEND Internal Medicine
DX: L03.032 Cellulitis of left toe (principal); I50.33 Acute on chronic diastolic (congestive) heart failure; I11.0 Hypertensive heart disease with heart failure; E86.0 Dehydration; R53.81 Other malaise; F10.10 Alcohol abuse, uncomplicated; M10.9 Gout, unspecified; Z20.822 Contact with and (suspected) exposure to COVID-19; K70.10 Alcoholic hepatitis without ascites; D63.8 Anemia in other chronic diseases classified elsewhere; R79.89 Other specified abnormal findings of blood chemistry; Z85.038 Personal history of other malignant neoplasm of large intestine; Z92.21 Personal history of antineoplastic chemotherapy; Z90.89 Acquired absence of other organs; Z87.891 Personal history of nicotine dependence
CPT/HCPCS: 36415; 71045; 71275; 76705; 80048; 80053; 81003; 81015; 82274; 82550; 83735; 83880; 84443; 84484; 84550; 85025; 86140; 87635; 90471; 90662; 90732; 93005; 93306; 96374; 96375; C9113; G0008; G0009; J0696; J1650; J1885; J1940; J2405; J3475; J3490; Q9967; U0003; U0005

== ENCOUNTER 2020-09-24 04:19 | Emergency (ER) | payer MEDICARE, BC ==
[2020-09-24 05:56] LABS: #Lymphocytes 0.9 thou/uL (1.20-3.40); #Monocytes 0.5 thou/uL (0.11-0.59); #Neutrophils 2.8 thou/uL (1.40-6.50); %Basophils 0.1 % (0.0-1.0); %Eosinophils 0.6 % (0.0-10.0); %Lymphocytes 20.5 % (21.0-51.0); %Monocytes 12.6 % (0.0-10.0); %Neutrophils 66.2 % (42.0-75.0); Hemoglobin 11.6 g/dL (14.0-18.0); Mean Corpuscular Hemoglobin 38.3 pg (27.0-31.0); Mean Platelet Volume 6.7 fL (7.4-10.4); Platelet Count 108 thou/uL (130-400); Platelet Morphology Comment Appears Decreased; RBC Distribution Width 13.1 % (11.5-14.5); Red Blood Cell (RBC) Count 3.03 mill/uL (4.70-6.10); White Blood Cell (WBC) Count 4.3 thou/uL (4.8-10.8)
[2020-09-24 05:59] LABS: ALT (SGPT) 23 U/L (8-55); AST (SGOT) 44 U/L (5-34); Albumin 3.5 g/dL (3.4-4.8); Alkaline Phosphatase 107 U/L (40-110); Anion Gap 16 mmol/L (10-20); BUN (Urea Nitrogen) 10 mg/dL (8.4-25.7); Bilirubin, Total 1.2 mg/dL (0.2-1.2); CK (CPK) 105 U/L (30-200); Calc. Creatinine Clearance 0 mL/min (70-130); Calcium 8.9 mg/dL (7.8-10.44); Carbon Dioxide 24 mmol/L (23-31); Chloride 102 mmol/L (98-107); Globulin 4.4 g/dL (2.4-3.5); Glucose 106 mg/dL (83-110); Potassium 3.3 mmol/L (3.5-5.1); Protein, Total 7.9 g/dL (5.8-8.1); Sodium 139 mmol/L (136-145)
[2020-09-24] MEDS ORDERED: Iopamidol-370 76% 500 ML 1 ML ONE (12:01)
== END 2020-09-24 12:26 | disposition home or self-care (01) ==
LOC: ERS 04:19
DX: M54.5 Low back pain (principal); I10 Essential (primary) hypertension; I48.91 Unspecified atrial fibrillation; Z79.899 Other long term (current) drug therapy
CPT/HCPCS: 36415; 71275; 74174; 80053; 82550; 84484; 85025; 93005; Q9967

== ENCOUNTER 2020-10-31 11:10 | Inpatient (IN) | payer MEDICARE, BC ==
[~2020-10-31 11:10] MED LIST: Iopamidol-370 76% 500 ML 1 ML ONE
[2020-10-31] MEDS ORDERED: Atropine Sulfate 1 mg/10 ml Syringe ONE (11:40)
[2020-10-31 12:06] LABS: #Eosinphils 0.2 thou/uL (0.0-0.7); #Lymphocytes 0.9 thou/uL (1.20-3.40); #Monocytes 0.4 thou/uL (0.11-0.59); %Basophils 1.4 % (0.0-1.0); %Eosinophils 8.6 % (0.0-10.0); %Lymphocytes 37.6 % (21.0-51.0); %Monocytes 14.3 % (0.0-10.0); %Neutrophils 38.2 % (42.0-75.0); Hemoglobin 11.1 g/dL (14.0-18.0); Mean Corpuscular HGB CONC 33.2 g/dL (32.0-36.0); Mean Corpuscular Hemoglobin 36.3 pg (27.0-31.0); Mean Platelet Volume 6.8 fL (7.4-10.4); Platelet Count 103 thou/uL (130-400); RBC Distribution Width 14.7 % (11.5-14.5); Red Blood Cell (RBC) Count 3.07 mill/uL (4.70-6.10); White Blood Cell (WBC) Count 2.5 thou/uL (4.8-10.8)
[2020-10-31 12:23] LABS: MDiff Complete? YES; Macrocytosis SLIGHT = 6-15 cells (100X) (0-5/hpf); Platelet Morphology Comment Appears Decreased; Polychromasia SLIGHT = 2-3 cells (100X) (0-2/hpf)
[2020-10-31 12:32] LABS: ALT (SGPT) 19 U/L (8-55); AST (SGOT) 44 U/L (5-34); Acetaminophen Less than 6.0 mcg/mL (10.0-30.0); Albumin 2.7 g/dL (3.4-4.8); Alcohol 189 mg/dL (Less than 10); Alkaline Phosphatase 90 U/L (40-110); Anion Gap 17 mmol/L (10-20); BUN (Urea Nitrogen) 6 mg/dL (8.4-25.7); Bilirubin, Total 0.6 mg/dL (0.2-1.2); Calc. Creatinine Clearance 0 mL/min (70-130); Calcium 8.5 mg/dL (7.8-10.44); Carbon Dioxide 23 mmol/L (23-31); Glucose 95 mg/dL (83-110); Magnesium 1.9 mg/dL (1.6-2.6); Potassium 3.2 mmol/L (3.5-5.1); Protein, Total 6.7 g/dL (5.8-8.1); Salicylate Less than 8.0 mg/dL (15.0-30.0)
[2020-10-31 12:45] LABS: Bilirubin Negative (Negative); Blood, Urine Negative (Negative); Clarity Clear (Clear); Glucose, Urine (Dipstick) Normal (Negative); Ketone, Urine Negative (Negative); Leukocyte Negative Leu/uL (Negative); Nitrite Negative (Negative); Protein, Urine (Dipstick) Negative (Neg-Trace); Specific Gravity, Urine 1.005 (1.002-1.036); Urobilinogen Normal mg/dL (Less than 2); pH, Urine 6.5 (5.0-9.0)
[2020-10-31] MEDS ORDERED: cefTRIAXone\\ROCEPHIN 1 GM VIAL ONE (12:46)
[2020-10-31 13:07] LABS: Chloride 98 mmol/L (98-107); Sodium 135 mmol/L (136-145)
[2020-10-31 13:27] LABS: Amphetamine Not Detected (NotDetected); Barbiturates Screen Not Detected (NotDetected); Benzodiazepine Screen Not Detected (NotDetected); Cocaine Metabolite Screen Not Detected (NotDetected); Medtox Control Line Valid? VALID (VALID); Medtox Reader # READER 1; Methadone Not Detected (NotDetected); Methamphetamine Not Detected (NotDetected); Opiate Screen Not Detected (NotDetected); Oxycodone Screen Not Detected (NotDetected); Phencyclidine (PCP) Not Detected (NotDetected); THC/Cannabinoid Screen Not Detected (NotDetected); Tricyclic Screen Not Detected (NotDetected)
[2020-10-31] MEDS ORDERED: Vancomycin 1 GM/200 ML BAG ONE (13:51)
[2020-10-31] MEDS ORDERED: Ondansetron PF 4 MG/2 ML Vial IVP PRN (14:26)
[2020-10-31] MEDS ORDERED: Acetaminophen 325 MG TAB PO PRN (14:26)
[2020-10-31] MEDS ORDERED: Potassium Chloride 20 MEQ TAB PO SCH ×2 (14:45→18:45)
[2020-10-31] MEDS ORDERED: Sodium Chloride 0.9% 1,000 ML IV SCH (16:00)
[2020-10-31 18:25] VITALS: BMI 25.8
[2020-10-31] MEDS: Brimonidine Tartrate 0.2% Ophth Soln 5 ml Bottle EA EYE SCH ×2 (18:53→21:38)
[2020-10-31] MEDS: Heparin 5,000 UNITS/ML VIAL SC SCH ×2 (18:53→21:59)
[2020-10-31] MEDS: Gabapentin 300 MG CAP PO SCH (21:37)
[2020-10-31] MEDS: Latanoprost 0.005% Ophth Soln 2.5 ml Bottle EA EYE SCH (21:38)
[2020-10-31] MEDS ORDERED: Magnesium 2 GM/50 ML 2 GM in Sodium Chloride 0.9% 100 ML IVPB SCH (22:00)
[2020-10-31] MEDS: Dorzolamide HCl 2% Ophth Soln 10 ml Bottle EA EYE SCH (22:00)
[2020-10-31] MEDS ORDERED: Magnesium 2 GM/50 ML 2 GM in Premix Bag 1 BAG IVPB SCH (22:30)
[2020-10-31 22:50] LABS: #Eosinphils 0.1 thou/uL (0.0-0.7); #Lymphocytes 0.5 thou/uL (1.20-3.40); #Monocytes 0.4 thou/uL (0.11-0.59); #Neutrophils 2.2 thou/uL (1.40-6.50); %Basophils 0.2 % (0.0-1.0); %Eosinophils 1.9 % (0.0-10.0); %Monocytes 12.3 % (0.0-10.0); %Neutrophils 69.7 % (42.0-75.0); Hemoglobin 9.9 g/dL (14.0-18.0); Mean Corpuscular HGB CONC 32.6 g/dL (32.0-36.0); Mean Corpuscular Hemoglobin 35.7 pg (27.0-31.0); Mean Platelet Volume 6.7 fL (7.4-10.4); Platelet Count 107 thou/uL (130-400); RBC Distribution Width 14.8 % (11.5-14.5); Red Blood Cell (RBC) Count 2.78 mill/uL (4.70-6.10); White Blood Cell (WBC) Count 3.2 thou/uL (4.8-10.8)
[2020-10-31 22:57] LABS: Anion Gap 12 mmol/L (10-20); BUN (Urea Nitrogen) 6 mg/dL (8.4-25.7); Calc. Creatinine Clearance 83 mL/min (70-130); Calcium 7.9 mg/dL (7.8-10.44); Carbon Dioxide 29 mmol/L (23-31); Chloride 102 mmol/L (98-107); Glucose 132 mg/dL (83-110); Magnesium 1.6 mg/dL (1.6-2.6); Potassium 3.7 mmol/L (3.5-5.1); Sodium 139 mmol/L (136-145)
[2020-10-31] MEDS ORDERED: Electrolyte Replacement Protocol 1 EACH FS SCH (23:15)
[2020-10-31] MEDS ORDERED: Thiamine HCl 200 MG/2 ML VIAL IM SCH (23:59)
[2020-11-01] MEDS ORDERED: Sodium Chloride 0.9% 500 ML IV SCH (00:15)
[2020-11-01 00:23] LABS: #Eosinphils 0.1 thou/uL (0.0-0.7); #Lymphocytes 0.6 thou/uL (1.20-3.40); #Monocytes 0.5 thou/uL (0.11-0.59); #Neutrophils 2.2 thou/uL (1.40-6.50); %Basophils 1.2 % (0.0-1.0); %Eosinophils 1.6 % (0.0-10.0); %Lymphocytes 17.6 % (21.0-51.0); %Monocytes 14.5 % (0.0-10.0); %Neutrophils 65.1 % (42.0-75.0); Mean Corpuscular HGB CONC 32.7 g/dL (32.0-36.0); Mean Corpuscular Hemoglobin 35.8 pg (27.0-31.0); Mean Platelet Volume 6.6 fL (7.4-10.4); Platelet Count 92 thou/uL (130-400); RBC Distribution Width 14.9 % (11.5-14.5); White Blood Cell (WBC) Count 3.4 thou/uL (4.8-10.8)
[2020-11-01 00:31] LABS: Lactic Acid 2.8 mmol/L (0.5-2.2)
[2020-11-01 00:37] LABS: ALT (SGPT) 19 U/L (8-55); AST (SGOT) 64 U/L (5-34); Albumin 2.3 g/dL (3.4-4.8); Alkaline Phosphatase 99 U/L (40-110); Anion Gap 13 mmol/L (10-20); BUN (Urea Nitrogen) 7 mg/dL (8.4-25.7); Bilirubin, Total 0.6 mg/dL (0.2-1.2); Calc. Creatinine Clearance 83 mL/min (70-130); Calcium 7.8 mg/dL (7.8-10.44); Carbon Dioxide 26 mmol/L (23-31); Chloride 102 mmol/L (98-107); Globulin 3.4 g/dL (2.4-3.5); Glucose 136 mg/dL (83-110); Potassium 3.8 mmol/L (3.5-5.1); Protein, Total 5.7 g/dL (5.8-8.1); Sodium 137 mmol/L (136-145)
[2020-11-01] MEDS: Cefepime 2 GM in Sodium Chloride 0.9% 100 ML IVPB SCH ×2 (01:01→12:50)
[2020-11-01] MEDS: Sodium Chloride 0.9% 1,000 ML IV SCH ×3 (01:56→16:40)
[2020-11-01] MEDS: Vancomycin 1 GM in Premix Bag 1 BAG IVPB SCH ×2 (01:57→13:20)
[2020-11-01] MEDS ORDERED: Sodium Chloride 0.9% 1,000 ML IV SCH (02:00)
[2020-11-01 02:42] LABS: #Eosinphils 0.1 thou/uL (0.0-0.7); #Lymphocytes 0.6 thou/uL (1.20-3.40); #Monocytes 0.4 thou/uL (0.11-0.59); %Basophils 0.8 % (0.0-1.0); %Eosinophils 1.7 % (0.0-10.0); %Lymphocytes 18.2 % (21.0-51.0); %Monocytes 12.4 % (0.0-10.0); %Neutrophils 66.9 % (42.0-75.0); Hemoglobin 9.3 g/dL (14.0-18.0); Mean Corpuscular HGB CONC 32.1 g/dL (32.0-36.0); Mean Corpuscular Hemoglobin 35.3 pg (27.0-31.0); Mean Platelet Volume 6.6 fL (7.4-10.4); Platelet Count 93 thou/uL (130-400); RBC Distribution Width 14.8 % (11.5-14.5); Red Blood Cell (RBC) Count 2.64 mill/uL (4.70-6.10)
[2020-11-01 03:16] LABS: Lactic Acid 2.5 mmol/L (0.5-2.2)
[2020-11-01 03:21] LABS: ALT (SGPT) 19 U/L (8-55); AST (SGOT) 69 U/L (5-34); Albumin 2.4 g/dL (3.4-4.8); Alkaline Phosphatase 106 U/L (40-110); Anion Gap 12 mmol/L (10-20); BUN (Urea Nitrogen) 7 mg/dL (8.4-25.7); Bilirubin, Total 0.6 mg/dL (0.2-1.2); Calc. Creatinine Clearance 80 mL/min (70-130); Calcium 7.6 mg/dL (7.8-10.44); Carbon Dioxide 25 mmol/L (23-31); Chloride 105 mmol/L (98-107); Globulin 3.5 g/dL (2.4-3.5); Glucose 133 mg/dL (83-110); Potassium 4.4 mmol/L (3.5-5.1); Protein, Total 5.9 g/dL (5.8-8.1); Sodium 138 mmol/L (136-145)
[2020-11-01] MEDS: Magnesium Oxide 400 MG TAB PO SCH (08:27)
[2020-11-01] MEDS: Folic Acid 1 MG TAB PO SCH ×2 (08:27→08:36)
[2020-11-01] MEDS: Multivitamin W/ Minerals 1 TAB PO SCH (08:27)
[2020-11-01] MEDS: Gabapentin 300 MG CAP PO SCH ×2 (08:28→21:11)
[2020-11-01] MEDS: Colchicine 0.6 MG TAB PO SCH (08:28)
[2020-11-01] MEDS: Brimonidine Tartrate 0.2% Ophth Soln 5 ml Bottle EA EYE SCH ×3 (08:36→21:10)
[2020-11-01] MEDS: Dorzolamide HCl 2% Ophth Soln 10 ml Bottle EA EYE SCH ×2 (08:36→21:10)
[2020-11-01] MEDS: Thiamine 100 MG TAB PO SCH (08:37)
[2020-11-01] MEDS ORDERED: Thiamine 100 MG TAB PO SCH (09:00)
[2020-11-01] MEDS: Loperamide HCl 2 MG CAP PO PRN (11:40)
[2020-11-01 12:29] LABS: SARS-CoV-2 PCR by NAA Not Detected (NotDetected)
[2020-11-01] MEDS: Latanoprost 0.005% Ophth Soln 2.5 ml Bottle EA EYE SCH (21:09)
[2020-11-02] MEDS: Cefepime 2 GM in Sodium Chloride 0.9% 100 ML IVPB SCH (00:29)
[2020-11-02] MEDS: Sodium Chloride 0.9% 1,000 ML IV SCH ×2 (00:35→10:13)
[2020-11-02 01:33] LABS: Vancomycin, Trough 13.3 ug/mL
[2020-11-02] MEDS: Vancomycin 1 GM in Premix Bag 1 BAG IVPB SCH (02:01)
[2020-11-02 04:35] LABS: #Eosinphils 0.2 thou/uL (0.0-0.7); #Lymphocytes 0.9 thou/uL (1.20-3.40); #Monocytes 0.4 thou/uL (0.11-0.59); #Neutrophils 2.5 thou/uL (1.40-6.50); %Basophils 0.3 % (0.0-1.0); %Eosinophils 4.5 % (0.0-10.0); %Lymphocytes 21.4 % (21.0-51.0); %Neutrophils 63.8 % (42.0-75.0); Hemoglobin 9.5 g/dL (14.0-18.0); Mean Corpuscular HGB CONC 32.6 g/dL (32.0-36.0); Mean Corpuscular Hemoglobin 36.1 pg (27.0-31.0); Mean Platelet Volume 6.8 fL (7.4-10.4); Platelet Count 84 thou/uL (130-400); Red Blood Cell (RBC) Count 2.62 mill/uL (4.70-6.10)
[2020-11-02 05:05] LABS: ALT (SGPT) 20 U/L (8-55); AST (SGOT) 50 U/L (5-34); Albumin 2.4 g/dL (3.4-4.8); Alkaline Phosphatase 88 U/L (40-110); Anion Gap 11 mmol/L (10-20); BUN (Urea Nitrogen) 7 mg/dL (8.4-25.7); Bilirubin, Total 0.8 mg/dL (0.2-1.2); Calc. Creatinine Clearance 85 mL/min (70-130); Calcium 7.8 mg/dL (7.8-10.44); Carbon Dioxide 21 mmol/L (23-31); Chloride 107 mmol/L (98-107); Globulin 3.6 g/dL (2.4-3.5); Glucose 94 mg/dL (83-110); Magnesium 1.9 mg/dL (1.6-2.6); Potassium 3.9 mmol/L (3.5-5.1); Sodium 135 mmol/L (136-145)
[2020-11-02] MEDS ORDERED: Magnesium 2 GM/50 ML 2 GM in Premix Bag 1 BAG IVPB SCH (06:30)
[2020-11-02] MEDS: cefTRIAXone\\ROCEPHIN 1 GM in Sodium Chloride 0.9% 100 ML IVPB SCH (09:19)
[2020-11-02] MEDS: Thiamine 100 MG TAB PO SCH (09:20)
[2020-11-02] MEDS: Magnesium Oxide 400 MG TAB PO SCH (09:20)
[2020-11-02] MEDS: Gabapentin 300 MG CAP PO SCH ×2 (09:20→20:10)
[2020-11-02] MEDS: Folic Acid 1 MG TAB PO SCH ×2 (09:21→10:12)
[2020-11-02] MEDS: Multivitamin W/ Minerals 1 TAB PO SCH (09:21)
[2020-11-02] MEDS: Brimonidine Tartrate 0.2% Ophth Soln 5 ml Bottle EA EYE SCH ×3 (09:21→20:09)
[2020-11-02] MEDS: Colchicine 0.6 MG TAB PO SCH (09:21)
[2020-11-02] MEDS: Dorzolamide HCl 2% Ophth Soln 10 ml Bottle EA EYE SCH ×2 (09:22→20:09)
[2020-11-02] MEDS: Loperamide HCl 2 MG CAP PO PRN (10:20)
[2020-11-02] MEDS: Latanoprost 0.005% Ophth Soln 2.5 ml Bottle EA EYE SCH (20:09)
[2020-11-03 05:02] LABS: #Eosinphils 0.1 thou/uL (0.0-0.7); #Lymphocytes 0.9 thou/uL (1.20-3.40); #Monocytes 0.6 thou/uL (0.11-0.59); #Neutrophils 3.8 thou/uL (1.40-6.50); %Basophils 0.3 % (0.0-1.0); %Eosinophils 2.3 % (0.0-10.0); %Monocytes 10.6 % (0.0-10.0); %Neutrophils 70.8 % (42.0-75.0); Hemoglobin 9.7 g/dL (14.0-18.0); Mean Corpuscular HGB CONC 32.6 g/dL (32.0-36.0); Mean Corpuscular Hemoglobin 35.7 pg (27.0-31.0); Platelet Count 93 thou/uL (130-400); Red Blood Cell (RBC) Count 2.72 mill/uL (4.70-6.10); White Blood Cell (WBC) Count 5.4 thou/uL (4.8-10.8)
[2020-11-03 05:20] LABS: Anion Gap 9 mmol/L (10-20); BUN (Urea Nitrogen) 7 mg/dL (8.4-25.7); Calc. Creatinine Clearance 89 mL/min (70-130); Calcium 8.1 mg/dL (7.8-10.44); Carbon Dioxide 25 mmol/L (23-31); Chloride 104 mmol/L (98-107); Glucose 94 mg/dL (83-110); Potassium 4.2 mmol/L (3.5-5.1); Sodium 134 mmol/L (136-145)
[2020-11-03] MEDS: cefTRIAXone\\ROCEPHIN 1 GM in Sodium Chloride 0.9% 100 ML IVPB SCH (08:42)
[2020-11-03] MEDS: Gabapentin 300 MG CAP PO SCH (08:42)
[2020-11-03] MEDS: Thiamine 100 MG TAB PO SCH (08:42)
[2020-11-03] MEDS: Multivitamin W/ Minerals 1 TAB PO SCH (08:42)
[2020-11-03] MEDS: Colchicine 0.6 MG TAB PO SCH (08:43)
[2020-11-03] MEDS: Dorzolamide HCl 2% Ophth Soln 10 ml Bottle EA EYE SCH (08:43)
[2020-11-03] MEDS: Brimonidine Tartrate 0.2% Ophth Soln 5 ml Bottle EA EYE SCH ×2 (08:43→15:11)
[2020-11-03] MEDS: Folic Acid 1 MG TAB PO SCH (08:43)
[2020-11-03] MEDS: Magnesium Oxide 400 MG TAB PO SCH (08:43)
[2020-11-03 15:06] VITALS: BP 136/88
[2020-11-03 15:59] VITALS: TEMP 98.3
[2020-11-03] MEDS ORDERED: Gabapentin 300 MG CAP PO SCH (21:00)
[2020-11-03] MEDS ORDERED: Tamsulosin HCl 0.4 MG CAP PO SCH (21:00)
[2020-11-03] MEDS ORDERED: Timolol 0.5% Ophth Soln 5 ml Bottle EA EYE SCH (21:00)
== END 2020-11-03 19:18 | disposition home or self-care (01) | DRG 896 ==
LOC: ERS 11:10 → 2NO 14:08 → OBSVTOIN 11-01 18:38
PROVIDERS: ADMIT Internal Medicine; ATTEND Internal Medicine
DX: F10.129 Alcohol abuse with intoxication, unspecified (principal); I50.33 Acute on chronic diastolic (congestive) heart failure; D61.818 Other pancytopenia; Z66 Do not resuscitate; H40.9 Unspecified glaucoma; Y90.6 Blood alcohol level of 120-199 mg/100 ml; R00.1 Bradycardia, unspecified; K62.89 Other specified diseases of anus and rectum; K70.10 Alcoholic hepatitis without ascites; I11.0 Hypertensive heart disease with heart failure; L89.102 Pressure ulcer of unspecified part of back, stage 2; Z85.048 Personal history of other malignant neoplasm of rectum, rectosigmoid junction, and anus; Z92.21 Personal history of antineoplastic chemotherapy; Z92.3 Personal history of irradiation; Z79.899 Other long term (current) drug therapy
CPT/HCPCS: 36415; 36416; 70450; 71045; 74177; 80048; 80053; 80202; 80306; 80307; 81003; 82274; 83605; 83690; 83735; 83880; 84145; 84443; 84484; 85025; 86850; 86900; 86901; 87040; 87086; 87635; 93005; 93010; 93306; 96365; 96367; 96372; 96375; 96376; G0378; J0461; J0692; J0696; J1644; J3370; J3411; J3475; J3490; Q9967; U0003; U0005